=== PATIENT | female | born 1995 | race Caucasian/White ===

== ENCOUNTER 2021-07-17 09:54 | Inpatient (IN) | payer BC ==
[~2021-07-17 09:54] MED LIST: Iopamidol-370 76% 500 ML 1 ML ONE
[2021-07-17] MEDS ORDERED: Ketamine 50 MG/ML (10ML VIAL) ONE (10:12)
[2021-07-17] MEDS ORDERED: Fentanyl 100 MCG/2 ML VIAL ONE ×2 (10:12→13:22)
[2021-07-17 10:32] LABS: Hemoglobin 11.1 g/dL (12.0-16.0); Mean Corpuscular HGB CONC 33.8 g/dL (32.0-36.0); Mean Corpuscular Hemoglobin 31.2 pg (27.0-31.0); Mean Corpuscular Volume 92.2 fL (78.0-98.0); RBC Distribution Width 13.3 % (11.5-14.5); Red Blood Cell (RBC) Count 3.55 mill/uL (4.20-5.40)
[2021-07-17 10:40] LABS: ALT (SGPT) 197 U/L (8-55); AST (SGOT) 220 U/L (5-34); Albumin 2.2 g/dL (3.5-5.0); Alkaline Phosphatase 28 U/L (40-110); Anion Gap 13 mmol/L (10-20); BUN (Urea Nitrogen) 12 mg/dL (7.0-18.7); Bilirubin, Total 0.2 mg/dL (0.2-1.2); Calc. Creatinine Clearance 0 mL/min (70-130); Calcium 6.7 mg/dL (7.8-10.44); Carbon Dioxide 15 mmol/L (22-29); Chloride 112 mmol/L (98-107); Globulin 1.8 g/dL (2.4-3.5); Glucose 288 mg/dL (70-105); Lipase 534 U/L (8-78); Potassium 3.5 mmol/L (3.5-5.1); Sodium 136 mmol/L (136-145)
[2021-07-17] MEDS ORDERED: PROPOFOL 200 MG/20 ML VIAL ONE (10:40)
[2021-07-17] MEDS ORDERED: Rocuronium Bromide 10 MG/ML (10ML VIAL) ONE (10:40)
[2021-07-17] MEDS ORDERED: Albuterol Sulfate HFA (OR ONLY) ONE ×2 (10:40→12:10)
[2021-07-17] MEDS ORDERED: Succinylcholine 200 MG/10 ml SYRINGE FS ONE ×2 (10:40→10:58)
[2021-07-17 10:44] LABS: Prothrombin Time 64.3 sec (12.0-14.7)
[2021-07-17 10:52] LABS: Band 14 % (5-11); Lymphocytes 8 % (21-51); MDiff Complete? YES; Mean Platelet Volume 9.2 fL (7.4-10.4); Monocytes 1 % (0-10); Neutrophil 76 % (42-75); Platelet Count 86 thou/uL (130-400); Platelet Morphology Comment Appears Decreased; Reactive Lymphocytes 1 % (0-10); White Blood Cell (WBC) Count 20.4 thou/uL (4.8-10.8)
[2021-07-17 10:55] LABS: INR-International Normal Ratio 7.3
[2021-07-17 10:59] LABS: PTT Greater than 250.0 sec (22.9-36.1)
[2021-07-17] MEDS ORDERED: Phenylephrine 10 MG/ML VIAL ONE (11:00)
[2021-07-17] MEDS ORDERED: PHENYLEPHRINE-NS 100 MCG/ML 10 ML SYRINGE ONE (11:00)
[2021-07-17 11:01] LABS: SARS-CoV-2 NAA Rapid Test Not Detected (NotDetected)
[2021-07-17 11:09] LABS: BHCG - Serum Negative (NEGATIVE); Pregs Control Background? CLEAR/WHITE (CLR/WHITE); Pregs Control Bar Appear? YES (CONTROL BAR)
[2021-07-17] MEDS ORDERED: SUGAMMADEX SODIUM 200 MG/2 ML VIAL ONE ×2 (11:50→11:52)
[2021-07-17] MEDS ORDERED: Dextrose 50% Abboject 50 ML SYRINGE SLOW IVP PRN ×2 (12:32→12:41)
[2021-07-17] MEDS ORDERED: hydrALAZINE 20 MG/ML VIAL SLOW IVP PRN (12:32)
[2021-07-17] MEDS ORDERED: Dextrose 5% in Water 1,000 ML IV PRN ×2 (12:32→12:41)
[2021-07-17] MEDS ORDERED: Ondansetron PF 4 MG/2 ML Vial IVP PRN ×3 (12:32→14:06)
[2021-07-17] MEDS ORDERED: Promethazine HCl 25 MG/ML VIAL IM PRN ×3 (12:32→14:06)
[2021-07-17] MEDS ORDERED: Ondansetron ODT 4 MG TAB PO PRN (12:41)
[2021-07-17] MEDS ORDERED: Lactated Ringer's 1,000 ML IV SCH (12:45)
[2021-07-17] MEDS: Sodium Chloride 0.9% 1,000 ML IV SCH ×2 (13:46→22:21)
[2021-07-17] MEDS ORDERED: diphenhydrAMINE 50 MG/ML VIAL IM PRN (14:06)
[2021-07-17] MEDS ORDERED: Naloxone HCl 0.4 mg/ml Vial IV PRN (14:06)
[2021-07-17] MEDS ORDERED: diphenhydrAMINE 25 MG CAP PO PRN (14:06)
[2021-07-17] MEDS ORDERED: Zolpidem Tartrate 5 MG TAB PO PRN (14:06)
[2021-07-17] MEDS ORDERED: diphenhydrAMINE 50 MG/ML VIAL IVP PRN (14:06)
[2021-07-17] MEDS ORDERED: Communication Order-Pharmacy FS SCH (14:15)
[2021-07-17] MEDS ORDERED: Fentanyl 100 MCG/2 ML VIAL SLOW IVP PRN ×2 (14:24)
[2021-07-17] MEDS: HYDROmorphone 10 mg/100 ml CADD IVPB PRN (15:01)
[2021-07-17 17:10] LABS: #Lymphocytes 0.8 thou/uL (1.20-3.40); #Monocytes 1.1 thou/uL (0.11-0.59); %Eosinophils 0.1 % (0.0-10.0); %Lymphocytes 5.9 % (21.0-51.0); %Monocytes 8.4 % (0.0-10.0); %Neutrophils 85.6 % (42.0-75.0); Hemoglobin 10.8 g/dL (12.0-16.0); Mean Corpuscular HGB CONC 36.7 g/dL (32.0-36.0); Mean Corpuscular Hemoglobin 32.5 pg (27.0-31.0); Mean Corpuscular Volume 88.6 fL (78.0-98.0); Mean Platelet Volume 9.2 fL (7.4-10.4); Platelet Count 77 thou/uL (130-400); RBC Distribution Width 12.1 % (11.5-14.5); Red Blood Cell (RBC) Count 3.33 mill/uL (4.20-5.40); White Blood Cell (WBC) Count 12.8 thou/uL (4.8-10.8)
[2021-07-17] MEDS: Scopolamine 1.5 mg/72 hour Patch TD SCH (17:13)
[2021-07-17 17:18] LABS: Anion Gap 11 mmol/L (10-20); BUN (Urea Nitrogen) 11 mg/dL (7.0-18.7); Calc. Creatinine Clearance 111 mL/min (70-130); Calcium 7.2 mg/dL (7.8-10.44); Carbon Dioxide 23 mmol/L (22-29); Chloride 111 mmol/L (98-107); Glucose 139 mg/dL (70-105); Magnesium 1.3 mg/dL (1.6-2.6); Phosphorus 2.5 mg/dL (2.3-4.7); Potassium 3.9 mmol/L (3.5-5.1); Sodium 141 mmol/L (136-145)
[2021-07-17] MEDS: Famotidine/PF 20 mg/2ml Vial SLOW IVP SCH (20:15)
[2021-07-17] MEDS ORDERED: Famotidine 20 MG TAB PO SCH (21:00)
[2021-07-17] MEDS: Ketorolac Tromethamine 30 MG/ML VIAL IVP PRN (21:17)
[2021-07-18] MEDS: Ketorolac Tromethamine 30 MG/ML VIAL IVP PRN (06:05)
[2021-07-18] MEDS: Sodium Chloride 0.9% 1,000 ML IV SCH ×3 (06:05→22:34)
[2021-07-18 06:48] LABS: #Lymphocytes 1.8 thou/uL (1.20-3.40); #Neutrophils 8.1 thou/uL (1.40-6.50); %Basophils 0.1 % (0.0-1.0); %Eosinophils 0.2 % (0.0-10.0); %Lymphocytes 16.4 % (21.0-51.0); %Monocytes 9.7 % (0.0-10.0); %Neutrophils 73.6 % (42.0-75.0); Hemoglobin 10.4 g/dL (12.0-16.0); Mean Corpuscular Hemoglobin 32.1 pg (27.0-31.0); Mean Corpuscular Volume 89.2 fL (78.0-98.0); Mean Platelet Volume 9.3 fL (7.4-10.4); Platelet Count 105 thou/uL (130-400); RBC Distribution Width 12.7 % (11.5-14.5); Red Blood Cell (RBC) Count 3.23 mill/uL (4.20-5.40)
[2021-07-18 06:49] LABS: #Monocytes 1.1 thou/uL (0.11-0.59)
[2021-07-18 07:04] LABS: Anion Gap 8 mmol/L (10-20); BUN (Urea Nitrogen) 7 mg/dL (7.0-18.7); Calc. Creatinine Clearance 127 mL/min (70-130); Calcium 7.6 mg/dL (7.8-10.44); Carbon Dioxide 24 mmol/L (22-29); Chloride 110 mmol/L (98-107); Glucose 93 mg/dL (70-105); Magnesium 2.4 mg/dL (1.6-2.6); Phosphorus 2.5 mg/dL (2.3-4.7); Potassium 4.9 mmol/L (3.5-5.1); Sodium 137 mmol/L (136-145)
[2021-07-18] MEDS: Famotidine/PF 20 mg/2ml Vial SLOW IVP SCH ×2 (08:18→21:48)
[2021-07-18] MEDS ORDERED: FLU VACC QS2021-22(6MOS UP)/PF 60 MCG/0.5 ML SYRINGE IM ONE (09:00)
[2021-07-18] MEDS: Acetaminophen 500 MG TAB PO SCH ×2 (12:22→17:41)
[2021-07-18] MEDS ORDERED: traMADol HCl 50 MG TAB PO PRN (12:33)
[2021-07-18] MEDS: Gabapentin 100 MG CAP PO SCH ×2 (15:56→22:33)
[2021-07-18] MEDS ORDERED: traMADol HCl 50 MG TAB PO SCH (18:00)
[2021-07-18] MEDS: SERTRALINE 100 MG PO SCH (21:48)
[2021-07-19] MEDS: Acetaminophen 500 MG TAB PO SCH ×4 (01:15→18:18)
[2021-07-19] MEDS: Sodium Chloride 0.9% 1,000 ML IV SCH ×3 (06:49→22:59)
[2021-07-19] MEDS: Gabapentin 100 MG CAP PO SCH ×3 (09:00→21:54)
[2021-07-19] MEDS: Famotidine/PF 20 mg/2ml Vial SLOW IVP SCH ×2 (09:02→21:55)
[2021-07-19 10:32] LABS: #Basophils 0.1 thou/uL (0.0-0.2); #Eosinphils 0.1 thou/uL (0.0-0.7); #Lymphocytes 1.2 thou/uL (1.20-3.40); #Monocytes 1.4 thou/uL (0.11-0.59); #Neutrophils 17.1 thou/uL (1.40-6.50); %Basophils 0.3 % (0.0-1.0); %Eosinophils 0.4 % (0.0-10.0); %Lymphocytes 5.8 % (21.0-51.0); %Monocytes 7.2 % (0.0-10.0); %Neutrophils 86.3 % (42.0-75.0); Hemoglobin 9.2 g/dL (12.0-16.0); Mean Corpuscular HGB CONC 32.9 g/dL (32.0-36.0); Mean Corpuscular Hemoglobin 30.1 pg (27.0-31.0); Mean Corpuscular Volume 91.3 fL (78.0-98.0); Mean Platelet Volume 9.2 fL (7.4-10.4); Platelet Count 149 thou/uL (130-400); RBC Distribution Width 12.8 % (11.5-14.5); Red Blood Cell (RBC) Count 3.06 mill/uL (4.20-5.40); White Blood Cell (WBC) Count 19.8 thou/uL (4.8-10.8)
[2021-07-19 10:56] LABS: Phosphorus 2.2 mg/dL (2.3-4.7)
[2021-07-19 10:57] LABS: Anion Gap 12 mmol/L (10-20); BUN (Urea Nitrogen) 5 mg/dL (7.0-18.7); Calc. Creatinine Clearance 137 mL/min (70-130); Carbon Dioxide 19 mmol/L (22-29); Chloride 109 mmol/L (98-107); Glucose 72 mg/dL (70-105); Magnesium 1.7 mg/dL (1.6-2.6); Potassium 4.2 mmol/L (3.5-5.1); Sodium 136 mmol/L (136-145)
[2021-07-19] MEDS: Ketorolac Tromethamine 30 MG/ML VIAL IVP SCH ×2 (13:10→18:19)
[2021-07-19] MEDS: HYDROmorphone 10 mg/100 ml CADD IVPB PRN (14:22)
[2021-07-19] MEDS: PHOS-NAK 1 PKT PACK PO SCH ×2 (17:19→21:54)
[2021-07-19] MEDS: SERTRALINE 100 MG PO SCH (21:56)
[2021-07-20] MEDS: Acetaminophen 500 MG TAB PO SCH ×5 (00:41→23:15)
[2021-07-20] MEDS: Ketorolac Tromethamine 30 MG/ML VIAL IVP SCH ×2 (00:41→06:37)
[2021-07-20] MEDS: Sodium Chloride 0.9% 1,000 ML IV SCH ×2 (06:38→18:02)
[2021-07-20 06:51] LABS: Hemoglobin 7.9 g/dL (12.0-16.0); Mean Corpuscular HGB CONC 34.6 g/dL (32.0-36.0); Mean Corpuscular Hemoglobin 32.5 pg (27.0-31.0); Mean Corpuscular Volume 93.9 fL (78.0-98.0); Mean Platelet Volume 8.9 fL (7.4-10.4); Platelet Count 163 thou/uL (130-400); RBC Distribution Width 12.8 % (11.5-14.5); Red Blood Cell (RBC) Count 2.43 mill/uL (4.20-5.40); White Blood Cell (WBC) Count 17.1 thou/uL (4.8-10.8)
[2021-07-20 06:55] LABS: Anion Gap 12 mmol/L (10-20); BUN (Urea Nitrogen) 6 mg/dL (7.0-18.7); Calc. Creatinine Clearance 142 mL/min (70-130); Calcium 7.7 mg/dL (7.8-10.44); Carbon Dioxide 17 mmol/L (22-29); Chloride 114 mmol/L (98-107); Magnesium 1.7 mg/dL (1.6-2.6); Phosphorus 2.4 mg/dL (2.3-4.7); Potassium 3.7 mmol/L (3.5-5.1); Sodium 139 mmol/L (136-145)
[2021-07-20 06:59] LABS: Glucose 59 mg/dL (70-105)
[2021-07-20 08:06] LABS: Band 11 % (5-11); Eosinophils 2 % (0-10); Lymphocytes 11 % (21-51); MDiff Complete? YES; Monocytes 3 % (0-10); Neutrophil 73 % (42-75); Platelet Morphology Comment Appears Adequate; RBC Morphology Normal
[2021-07-20] MEDS: Gabapentin 300 MG CAP PO SCH ×3 (08:28→20:49)
[2021-07-20] MEDS: PHOS-NAK 1 PKT PACK PO SCH ×3 (08:29→20:47)
[2021-07-20] MEDS: Famotidine/PF 20 mg/2ml Vial SLOW IVP SCH ×2 (08:29→20:48)
[2021-07-20] MEDS: traMADol HCl 50 MG TAB PO SCH ×3 (11:52→23:15)
[2021-07-20] MEDS: Ascorbic Acid 500 mg Chewable Tablet PO SCH ×2 (12:02→20:48)
[2021-07-20] MEDS: Ketorolac Tromethamine 10 MG TAB PO SCH ×3 (13:35→23:16)
[2021-07-20] MEDS: traMADol HCl 50 MG TAB PO PRN (15:10)
[2021-07-20] MEDS: Ferrous Sulfate 325 MG TAB PO SCH (17:58)
[2021-07-20] MEDS: Scopolamine 1.5 mg/72 hour Patch TD SCH (19:37)
[2021-07-20] MEDS: SERTRALINE 100 MG PO SCH (20:49)
[2021-07-21] MEDS: Sodium Chloride 0.9% 1,000 ML IV SCH ×2 (00:25→08:55)
[2021-07-21] MEDS: Ketorolac Tromethamine 10 MG TAB PO SCH ×3 (06:05→17:44)
[2021-07-21] MEDS: Acetaminophen 500 MG TAB PO SCH ×3 (06:05→17:41)
[2021-07-21] MEDS: traMADol HCl 50 MG TAB PO SCH ×3 (06:05→17:43)
[2021-07-21 06:41] LABS: Mean Corpuscular HGB CONC 35.5 g/dL (32.0-36.0); Mean Corpuscular Hemoglobin 32.6 pg (27.0-31.0); Mean Platelet Volume 8.3 fL (7.4-10.4); Platelet Count 283 thou/uL (130-400); RBC Distribution Width 12.6 % (11.5-14.5); Red Blood Cell (RBC) Count 2.47 mill/uL (4.20-5.40); White Blood Cell (WBC) Count 17.5 thou/uL (4.8-10.8)
[2021-07-21 06:42] LABS: #Basophils 0.1 thou/uL (0.0-0.2); #Eosinphils 0.6 thou/uL (0.0-0.7); #Lymphocytes 1.7 thou/uL (1.20-3.40); #Monocytes 1.2 thou/uL (0.11-0.59); %Basophils 0.4 % (0.0-1.0); %Eosinophils 3.2 % (0.0-10.0); %Lymphocytes 9.6 % (21.0-51.0); %Neutrophils 79.8 % (42.0-75.0)
[2021-07-21 06:59] LABS: ALT (SGPT) 52 U/L (8-55); AST (SGOT) 31 U/L (5-34); Albumin 2.8 g/dL (3.5-5.0); Alkaline Phosphatase 55 U/L (40-110); Anion Gap 12 mmol/L (10-20); BUN (Urea Nitrogen) 5 mg/dL (7.0-18.7); Bilirubin, Total 0.7 mg/dL (0.2-1.2); Calc. Creatinine Clearance 153 mL/min (70-130); Calcium 7.4 mg/dL (7.8-10.44); Carbon Dioxide 18 mmol/L (22-29); Chloride 109 mmol/L (98-107); Globulin 2.2 g/dL (2.4-3.5); Glucose 72 mg/dL (70-105); Magnesium 1.5 mg/dL (1.6-2.6); Phosphorus 3.3 mg/dL (2.3-4.7); Potassium 4.1 mmol/L (3.5-5.1); Sodium 135 mmol/L (136-145)
[2021-07-21] MEDS ORDERED: Magnesium Sulfate 4 GM in Sodium Chloride 0.9% 250 ML 250 ML IVPB SCH (08:30)
[2021-07-21 08:31] LABS: Band 13 % (5-11); Eosinophils 2 % (0-10); Hypochromia SLIGHT = 6-15 cells (100X) (0-5/hpf); Lymphocytes 12 % (21-51); MDiff Complete? YES; Monocytes 5 % (0-10); Neutrophil 67 % (42-75); Platelet Morphology Comment Appears Adequate; Polychromasia SLIGHT = 2-3 cells (100X) (0-2/hpf); Reactive Lymphocytes 1 % (0-10)
[2021-07-21] MEDS: Famotidine/PF 20 mg/2ml Vial SLOW IVP SCH (08:56)
[2021-07-21] MEDS: Gabapentin 300 MG CAP PO SCH ×3 (08:56→21:06)
[2021-07-21] MEDS: Ferrous Sulfate 325 MG TAB PO SCH ×3 (08:57→21:05)
[2021-07-21] MEDS: Ascorbic Acid 500 mg Chewable Tablet PO SCH ×2 (08:57→21:07)
[2021-07-21] MEDS: PHOS-NAK 1 PKT PACK PO SCH ×2 (08:57→17:40)
[2021-07-21] MEDS ORDERED: Haemoph B Poly Conj-Tet Tox/PF 10 MCG/0.5 ML VIAL IM ONE (09:45)
[2021-07-21] MEDS: Polyethylene Glycol 3350 17 GM Packet PO SCH (10:09)
[2021-07-21] MEDS: Senokot S 8.6-50 MG TAB PO SCH ×2 (10:09→21:08)
[2021-07-21] MEDS: SERTRALINE 100 MG PO SCH (21:06)
[2021-07-22] MEDS: Acetaminophen 500 MG TAB PO SCH ×4 (00:33→18:38)
[2021-07-22] MEDS: Ketorolac Tromethamine 10 MG TAB PO SCH ×3 (00:33→14:00)
[2021-07-22] MEDS: traMADol HCl 50 MG TAB PO SCH ×4 (00:34→18:39)
[2021-07-22 06:12] LABS: #Basophils 0.1 thou/uL (0.0-0.2); #Eosinphils 0.7 thou/uL (0.0-0.7); #Lymphocytes 2.3 thou/uL (1.20-3.40); #Monocytes 1.1 thou/uL (0.11-0.59); #Neutrophils 9.2 thou/uL (1.40-6.50); %Basophils 0.5 % (0.0-1.0); %Eosinophils 5.2 % (0.0-10.0); %Monocytes 8.4 % (0.0-10.0); %Neutrophils 68.9 % (42.0-75.0); Hemoglobin 7.9 g/dL (12.0-16.0); Mean Corpuscular HGB CONC 34.1 g/dL (32.0-36.0); Mean Corpuscular Hemoglobin 31.7 pg (27.0-31.0); Mean Platelet Volume 8.2 fL (7.4-10.4); Platelet Count 375 thou/uL (130-400); RBC Distribution Width 12.7 % (11.5-14.5); Red Blood Cell (RBC) Count 2.49 mill/uL (4.20-5.40); White Blood Cell (WBC) Count 13.4 thou/uL (4.8-10.8)
[2021-07-22 06:22] LABS: Anion Gap 10 mmol/L (10-20); BUN (Urea Nitrogen) 6 mg/dL (7.0-18.7); Calc. Creatinine Clearance 140 mL/min (70-130); Calcium 7.9 mg/dL (7.8-10.44); Carbon Dioxide 26 mmol/L (22-29); Chloride 108 mmol/L (98-107); Glucose 84 mg/dL (70-105); Magnesium 1.9 mg/dL (1.6-2.6); Phosphorus 3.9 mg/dL (2.3-4.7); Potassium 4.4 mmol/L (3.5-5.1); Sodium 140 mmol/L (136-145)
[2021-07-22 07:19] VITALS: BMI 22.1
[2021-07-22] MEDS: Ascorbic Acid 500 mg Chewable Tablet PO SCH ×2 (08:29→21:25)
[2021-07-22] MEDS: Gabapentin 300 MG CAP PO SCH ×3 (08:30→21:25)
[2021-07-22] MEDS: Senokot S 8.6-50 MG TAB PO SCH ×2 (08:30→21:24)
[2021-07-22] MEDS: Ferrous Sulfate 325 MG TAB PO SCH ×2 (08:30→21:29)
[2021-07-22] MEDS: Polyethylene Glycol 3350 17 GM Packet PO SCH (08:31)
[2021-07-22] MEDS: traMADol HCl 50 MG TAB PO PRN (08:41)
[2021-07-22] MEDS: Mening Vac A,C,Y,W-135 Dip/PF 1 EACH KIT IM ONE ×2 (19:14→21:22)
[2021-07-22] MEDS: SERTRALINE 100 MG PO SCH (23:29)
[2021-07-23] MEDS: traMADol HCl 50 MG TAB PO SCH ×3 (01:50→11:40)
[2021-07-23] MEDS: Acetaminophen 500 MG TAB PO SCH ×3 (01:51→11:40)
[2021-07-23] MEDS: Senokot S 8.6-50 MG TAB PO SCH (08:16)
[2021-07-23] MEDS: Ferrous Sulfate 325 MG TAB PO SCH (08:16)
[2021-07-23] MEDS: Gabapentin 300 MG CAP PO SCH ×2 (08:16→14:28)
[2021-07-23] MEDS: Ascorbic Acid 500 mg Chewable Tablet PO SCH (08:16)
[2021-07-23] MEDS: Polyethylene Glycol 3350 17 GM Packet PO SCH (08:16)
[2021-07-23 08:17] LABS: #Basophils 0.1 thou/uL (0.0-0.2); #Eosinphils 0.5 thou/uL (0.0-0.7); #Monocytes 1.1 thou/uL (0.11-0.59); #Neutrophils 11.4 thou/uL (1.40-6.50); %Basophils 0.4 % (0.0-1.0); %Lymphocytes 13.2 % (21.0-51.0); %Monocytes 7.3 % (0.0-10.0); Hemoglobin 8.4 g/dL (12.0-16.0); Mean Corpuscular Hemoglobin 31.5 pg (27.0-31.0); Mean Corpuscular Volume 92.6 fL (78.0-98.0); Platelet Count 530 thou/uL (130-400); RBC Distribution Width 12.6 % (11.5-14.5); Red Blood Cell (RBC) Count 2.67 mill/uL (4.20-5.40)
[2021-07-23] MEDS: traMADol HCl 50 MG TAB PO PRN ×2 (08:25→14:28)
[2021-07-23] MEDS ORDERED: Prevnar 13-Val Conj/PF 0.5 ML SYRINGE IM ONE (09:45)
[2021-07-23] MEDS ORDERED: FLU VACC QS2021-22(6MOS UP)/PF 60 MCG/0.5 ML SYRINGE IM ONE (09:45)
[2021-07-23 16:20] VITALS: BP 114/62; TEMP 98.3
== END 2021-07-23 16:20 | disposition home or self-care (01) | DRG 799 ==
LOC: ERS 09:54 → CCU 12:32 → SURG B 18:48
PROVIDERS: ADMIT Surgery; ATTEND Surgery
PROC: 30233K1 Transfusion of Nonautologous Frozen Plasma into Peripheral Vein, Percutaneous Approach (ICD-10-PCS; principal; 2021-07-17)
PROC: 30233N1 Transfusion of Nonautologous Red Blood Cells into Peripheral Vein, Percutaneous Approach (ICD-10-PCS; 2021-07-17)
PROC: 30233R1 Transfusion of Nonautologous Platelets into Peripheral Vein, Percutaneous Approach (ICD-10-PCS; 2021-07-17)
PROC: 30233M1 Transfusion of Nonautologous Plasma Cryoprecipitate into Peripheral Vein, Percutaneous Approach (ICD-10-PCS; 2021-07-17)
PROC: 07TP0ZZ Resection of Spleen, Open Approach (ICD-10-PCS; 2021-07-17)
PROC: 0FQ20ZZ Repair Left Lobe Liver, Open Approach (ICD-10-PCS; 2021-07-17)
DX: S36.032A Major laceration of spleen, initial encounter (principal); R57.1 Hypovolemic shock; S36.115A Moderate laceration of liver, initial encounter; S22.43XA Multiple fractures of ribs, bilateral, initial encounter for closed fracture; D62 Acute posthemorrhagic anemia; K56.7 Ileus, unspecified; V49.9XXA Car occupant (driver) (passenger) injured in unspecified traffic accident, initial encounter; Y92.410 Unspecified street and highway as the place of occurrence of the external cause; Z90.49 Acquired absence of other specified parts of digestive tract
CPT/HCPCS: 36415; 36416; 36430; 70450; 71045; 71260; 72125; 72170; 74018; 74177; 80048; 80053; 80307; 83690; 83735; 84100; 84703; 85025; 85610; 85730; 86850; 86900; 86901; 88305; 90471; 90670; G0009; G0390; J1885; J2370; J2405; J2704; J3010; J3475; J3490; J7050; J7120; P9012; P9016; P9035; P9048; P9059; Q9967; S0028; U0002